=== PATIENT | male | born 1990 | race Two or more races ===

== ENCOUNTER 2022-07-26 16:45 | Emergency (ER) | payer OTHER ==
[~2022-07-26] VITALS: Ht 180.3 cm; Wt 99.8 kg
[2022-07-26] MEDS ORDERED: [UNRECOGNIZED DRUG - OTHER] (17:13)
== END 2022-07-26 20:34 | disposition home or self-care (01) ==
LOC: ER 16:45
DX: M94.0 Chondrocostal junction syndrome [Tietze] (principal)